=== PATIENT | male | born 1970 | race Hispanic/Latino ===

== ENCOUNTER 2019-09-23 07:28 | Day surgery (SDC) | payer BC ==
[2019-09-20 15:53] VITALS: BP 140/79
[2019-09-20 16:17] LABS: BASOPHILS % (AUTO) 0.3 % (0.0-5.0); EOSINOPHILS % (AUTO) 4.1 % (0.0-8.0); LYMPHOCYTES % (AUTO) 21.2 % (21.0-51.0); MEAN CORPUSCULAR HEMOGLOBIN 27.5 pg (27.0-33.0); MEAN CORPUSCULAR HGB CONC 32.6 g/dL (32.0-36.0); MEAN CORPUSCULAR VOLUME 84.5 fL (79-99); MONOCYTES % (AUTO) 8.9 % (3.0-13.0); NEUTROPHILS % (AUTO) 64.5 % (40.0-77.0); PLATELET COUNT (AUTO) 248 K/uL (130-400); RED BLOOD CELL COUNT(AUTO) 5.92 MIL/uL (4.50-6.20); RED CELL DISTRIBUTION WIDTH 12.3 % (11.0-15.5); WHITE BLOOD COUNT (AUTO) 6.3 K/uL (4.8-10.8)
[~2019-09-23] VITALS: Ht 180.3 cm; Wt 125.3 kg
[2019-09-23] VITALS (16 sets, daily range): BP systolic 129–152; BP diastolic 73–89
[2019-09-23] MEDS ORDERED: LACTATED RINGERS 1000ML 1,000 ML IV SCH (08:00)
[2019-09-23] MEDS ORDERED: MIDAZOLAM HCL 1 MG/ML 2ML VIAL ONE (10:10)
[2019-09-23] MEDS ORDERED: FENTANYL CITRATE PF 50 MCG/1 ML 2ML VIAL ONE ×2 (10:11→10:28)
[2019-09-23] MEDS ORDERED: SUCCINYLCHOLINE 200MG/10ML SYR ONE (10:12)
[2019-09-23] MEDS ORDERED: PROPOFOL 10 MG/ML 20ML VIAL IV ONE (10:12)
[2019-09-23] MEDS ORDERED: ROCURONIUM 10MG/1ML SYR 10 MG/ML ML ONE (10:12)
[2019-09-23] MEDS ORDERED: BUPIVACAINE/PF 0.25% 50ML VIAL IJ ONE (10:29)
[2019-09-23] MEDS ORDERED: NEOSTIGMINE 5MG/5ML SYR IV ONE (11:03)
[2019-09-23] MEDS ORDERED: GLYCOPYRROLATE 1 MG/5 ML SYRINGE ONE (11:03)
[2019-09-23] MEDS ORDERED: MEPERIDINE-PF 25 MG/ML SYG ONE ×2 (11:31→11:41)
--- NOTE | 2019-09-23 12:15 | NUR ---
post received from [facility], S/P umbilical hernia repair , dressing to site dry and intact, vs stable on arrival.
--- NOTE | 2019-09-23 12:45 | NUR ---
md dr. kuhn paged to inform him that patient c/o severe right calf pain, pt unable to move leg states has alot of pain, pt seems very drowsy unable to sit up in bed, vs stable. waiting for call back
--- NOTE | 2019-09-23 12:51 | NUR ---
md dr. kuhn made aware of right calf pain, he stated probably cramp have patients spouse massage area. to let patient wakeup more then dc home. , report given to [facility] to resume care patient pending to go home
--- NOTE | 2019-09-23 13:50 | NUR ---
DISCHARGE ORAL AND WRITTEN DISCHARGE INSTRUCTIONS GIVEN TO PT AND PTS BY [facility] OG. NO OTHER QUESTIONS AT THIS TIME.
== END 2019-09-23 14:00 | disposition home or self-care (01) ==
LOC: DAH 07:28
PROVIDERS: ATTEND Surgery
DX: K43.2 Incisional hernia without obstruction or gangrene (principal); E66.9 Obesity, unspecified; Z68.38 Body mass index [BMI] 38.0-38.9, adult; Z90.49 Acquired absence of other specified parts of digestive tract; Z83.3 Family history of diabetes mellitus
CPT/HCPCS: 36415; 49560; 49568; 85025; A4215; A4221; A4222; A4223; A4450; A4452; A4606; A4663; A4930; A6260; C1781; J0330; J2175 ×2; J2250; J2704; J2710; J3010 ×2; J3490 ×2; J7120 ×2